=== PATIENT | female | born 1955 | race Two or more races ===

== ENCOUNTER 2024-07-26 21:15 | Inpatient (IN) | payer OTHER ==
[~2024-07-26] VITALS: Ht 162.6 cm; Wt 100.8 kg
[2024-07-26 21:57] LABS: Basophils # (auto) 0.1 10 ^3/uL (0-0.2); Basophils % (auto) 0.8 % (0.0-2.0); Eosinophils # (auto) 0 10 ^3/uL (0-0.8); Eosinophils % (auto) 0.2 % (0.0-7.0); Hematocrit 42.4 % (36.0-46.0); Lymphocytes # (auto) 1.3 10 ^3/uL (0.4-5.4); Lymphocytes % (auto) 13.5 % (10.0-50.0); Mean Corpuscular Hemoglobin 28.1 pg (28.0-32.0); Mean Corpuscular Volume 85.2 fL (80.0-100.0); Monocytes # (auto) 0.7 10 ^3/uL (0-1.3); Neutrophils # (auto) 7.7 10 ^3/uL (1.6-8.6); Neutrophils % (auto) 78.5 % (37.0-80.0); Platelet Count (auto) 299 10^3/uL (140-450); Red Blood Cells 4.97 10^6/uL (4.0-5.20); Red Cell Distribution Width 15.5 % (11.8-14.3); White Blood Cell 9.8 10^3/uL (4.4-10.8)
[2024-07-26] MEDS: IPRATROPIUM BROM 0.5 MG/2.5ML INH SOL NEB ONE (22:05)
[2024-07-26] MEDS: ALBUTEROL SULF 2.5 MG/0.5ML(0.5%) NEB SOLN NEB ONE (22:05)
[2024-07-26 22:08] LABS: Chloride 109 mmol/L (98-107); Potassium 4.9 mmol/L (3.5-5.1); Sodium 142 mmol/L (136-145)
[2024-07-26 22:09] LABS: Anion Gap 5 (5-15); Carbon Dioxide 28 mmol/L (20-31)
[2024-07-26 22:10] LABS: Calcium 9.8 mg/dL (8.7-10.4)
[2024-07-26 22:15] LABS: BUN/Creatinine Ratio 34.9 (10.0-20.0); Blood Urea Nitrogen 29 mg/dL (9-23); Glucose 131 mg/dL (74-106)
[2024-07-26 22:25] LABS: Lactic Acid w/Reflex 2.3 mmol/L (0.4-2.0)
[2024-07-27] VITALS (13 sets, daily range): BP systolic 125–158; BP diastolic 75–80; PULSE 73–95; RESP 16–22; TEMP 97.9–98; O2SAT 90–100
[2024-07-27] MEDS: SODIUM CHLORIDE 0.9% 1,000 ML IV ONE (00:31)
[2024-07-27] MEDS: methylPREDNISolone SOD SUCC 125 MG/2 ML VL IV ONE (00:31)
[2024-07-27] MEDS: levoFLOXacin 750MG 150 ML IV ONE (00:31)
[2024-07-27 00:51] LABS: Urine Bacteria MANY /hpf (None Seen); Urine Blood Negative /uL (Negative); Urine Clarity Clear (Clear); Urine Color Light-Yellow (Yellow); Urine Protein, UAD Negative (Negative); Urine Specific Gravity 1.029 (1.001-1.035); Urine Urobilinogen Normal (Negative); Urine WBC 2 /hpf (0 - 5); Urine pH 5.5 (5.0-9.0)
[2024-07-27] MEDS: ALBUTEROL SULF 2.5 MG/0.5ML(0.5%) NEB SOLN NEB ONE (02:06)
[2024-07-27] MEDS: ALBUTEROL SULF 2.5 MG/0.5ML(0.5%) NEB SOLN ONE (02:06)
[2024-07-27] MEDS: IPRATROPIUM BROM 0.5 MG/2.5ML INH SOL ONE (02:06)
[2024-07-27] MEDS: IPRATROPIUM BROM 0.5 MG/2.5ML INH SOL NEB ONE (02:07)
[2024-07-27] MEDS ORDERED: HYDROcodone-ACET 5/325MG TAB PO PRN (02:45)
[2024-07-27] MEDS ORDERED: ACETAMINOPHEN 325 MG TAB PO PRN (02:45)
[2024-07-27] MEDS ORDERED: ONDANSETRON HCL 4 MG/2 ML VIAL IV PRN (02:45)
[2024-07-27 04:33] LABS: COVID19 ANTIGEN SOFIA FIA NEGATIVE (NEGATIVE); Rapid Influenza A Negative (Negative); Rapid Influenza B Negative (Negative)
[2024-07-27] MEDS: methylPREDNISolone SOD SUCC 40 MG/ML VL IV SCH (05:40)
[2024-07-27] MEDS: ALBUTEROL SULF 2.5 MG/0.5ML(0.5%) NEB SOLN NEB PRN (05:41)
[2024-07-27] MEDS: IPRATROPIUM BROM 0.5 MG/2.5ML INH SOL NEB SCH (05:41)
[2024-07-27] MEDS: FAMOTIDINE 20 MG TAB PO SCH (09:36)
[2024-07-28] VITALS (11 sets, daily range): BP systolic 123–131; BP diastolic 66–71; PULSE 63–89; RESP 16–20; TEMP 36.7; O2SAT 90–98
[2024-07-28] MEDS ORDERED: levoFLOXacin 500MG 100 ML IV SCH (01:00)
[2024-07-28] MEDS ORDERED: IPRA0.00 IN (11:53)
[2024-07-28] MEDS ORDERED: ALBU108A5 IN (11:53)
[2024-07-28] MEDS ORDERED: PRED20TA2 PO (11:53)
[2024-07-28] MEDS ORDERED: DOXY100C79 PO (11:53)
== END 2024-07-28 16:05 | disposition home or self-care (01) | DRG 189 ==
LOC: ER 21:15 → OVERFLOW 07-27 02:42 → WEST WING 07-27 21:47
PROVIDERS: ADMIT Nurse Practitioner Family; ATTEND Nurse Practitioner Family
DX: J96.21 Acute and chronic respiratory failure with hypoxia (principal); J44.1 Chronic obstructive pulmonary disease with (acute) exacerbation; Z68.41 Body mass index [BMI] 40.0-44.9, adult; E87.20 Acidosis, unspecified; J20.9 Acute bronchitis, unspecified; E66.01 Morbid (severe) obesity due to excess calories; E78.5 Hyperlipidemia, unspecified; Z86.16 Personal history of COVID-19; Z87.891 Personal history of nicotine dependence; Z97.0 Presence of artificial eye; Z99.81 Dependence on supplemental oxygen; Z88.0 Allergy status to penicillin; Z88.8 Allergy status to other drugs, medicaments and biological substances; Z98.891 History of uterine scar from previous surgery
CPT/HCPCS: 36415; 71045; 80048; 81001; 83605; 83880; 84484; 85025; 87070; 87205; 87426; 87804; 93005; 94640; 94660; G0378; J1956